=== PATIENT | male | born 1980 | race Hispanic/Latino ===

== ENCOUNTER 2021-01-05 23:42 | Inpatient (IN) | payer OTHER ==
[~2021-01-05] VITALS: Ht 170.2 cm; Wt 111.4 kg
[2021-01-06] VITALS (7 sets, daily range): BP systolic 118–140; BP diastolic 56–83
[2021-01-06] MEDS: SODIUM CHLORIDE 0.9% 1000ML 1,000 ML IV SCH ×3 (01:00→05:15)
[2021-01-06 01:53] LABS: BASOPHILS % (AUTO) 0.9 % (0.0-5.0); EOSINOPHILS % (AUTO) 3.6 % (0.0-8.0); HEMATOCRIT 36.4 % (42-54); LYMPHOCYTES % (AUTO) 37.9 % (21.0-51.0); MEAN CORPUSCULAR HGB CONC 35.2 g/dL (32.0-36.0); MEAN CORPUSCULAR VOLUME 85.2 fL (79-99); MONOCYTES % (AUTO) 9.7 % (3.0-13.0); NEUTROPHILS % (AUTO) 47.4 % (40.0-77.0); PLATELET COUNT (AUTO) 220 K/uL (130-400); RED BLOOD CELL COUNT(AUTO) 4.27 MIL/uL (4.50-6.20); RED CELL DISTRIBUTION WIDTH 12.6 % (11.0-15.5); WHITE BLOOD COUNT (AUTO) 5.5 K/uL (4.8-10.8)
[2021-01-06 01:57] LABS: APPEARANCE,URINE Clear (CLEAR); BILIRUBIN,URINE Negative (NEGATIVE); COLOR,URINE Yellow (YELLOW); GLUCOSE, URINE (UA) Negative (NEGATIVE); KETONES,URINE Negative (NEGATIVE); LEUKOCYTE ESTERASE ,URINE Negative (NEGATIVE); NITRATE,URINE Negative (NEGATIVE); OCCULT BLOOD,URINE Negative (NEGATIVE); PROTEIN,URINE Negative (NEGATIVE)
[2021-01-06 02:08] LABS: INR 1.21 (0.85-1.15)
[2021-01-06 02:18] LABS: CREATININE 1.3 mg/dL (0.5-1.5); POTASSIUM 3.8 mmol/L (3.5-5.1)
[2021-01-06 02:22] LABS: ALBUMIN 3.8 g/dL (3.5-5.0); BILIRUBIN,TOTAL 0.4 mg/dL (0.2-1.0); TOTAL PROTEIN, SERUM 7.9 g/dL (6.0-8.3)
[2021-01-06] MEDS ORDERED: AZITHROMYCIN 500MG+NS 250ML 250 ML IV SCH (04:45)
[2021-01-06] MEDS ORDERED: CEFTRIAXONE SODIUM 1 GM IVP SCH (04:45)
[2021-01-06] MEDS ORDERED: GUAIFENESIN-DM 200/20 MG 10 ML PO PRN (05:15)
[2021-01-06] MEDS ORDERED: ONDANSETRON HCL 4 MG/2 ML VIAL IV PRN (05:15)
[2021-01-06] MEDS: CEFTRIAXONE SODIUM 1 GM IVP SCH ×2 (05:15→17:45)
[2021-01-06] MEDS: AZITHROMYCIN 500MG+NS 250ML 250 ML IV SCH (05:15)
[2021-01-06] MEDS ORDERED: ACETAMINOPHEN 325 MG TAB PO PRN ×2 (05:15)
[2021-01-06 07:00] LABS: HEMATOCRIT 36.6 % (42-54); MEAN CORPUSCULAR HEMOGLOBIN 29.9 pg (27.0-33.0); MEAN CORPUSCULAR HGB CONC 34.4 g/dL (32.0-36.0); MEAN CORPUSCULAR VOLUME 86.9 fL (79-99); RED BLOOD CELL COUNT(AUTO) 4.21 MIL/uL (4.50-6.20); RED CELL DISTRIBUTION WIDTH 12.8 % (11.0-15.5); WHITE BLOOD COUNT (AUTO) 6.2 K/uL (4.8-10.8)
[2021-01-06 07:11] LABS: ALBUMIN 3.7 g/dL (3.5-5.0); BILIRUBIN,DIRECT 0.1 mg/dL (0.0-0.3); BILIRUBIN,TOTAL 0.3 mg/dL (0.2-1.0); CREATININE 1.1 mg/dL (0.5-1.5); POTASSIUM 4.4 mmol/L (3.5-5.1); TOTAL PROTEIN, SERUM 7.6 g/dL (6.0-8.3)
[2021-01-06] MEDS ORDERED: PANTOPRAZOLE 40 MG/VIAL IVP SCH (09:00)
[2021-01-06] MEDS ORDERED: IPRATROPIUM/ALBUTEROL SULFATE 3 ML SOLUTION IH PRN (09:30)
[2021-01-06] MEDS: MONTELUKAST SODIUM 10 MG TAB PO SCH (10:00)
[2021-01-06] MEDS: FENOFIBRATE NANOCRYSTALLIZED 145 MG TAB PO SCH (10:00)
[2021-01-06 14:18] LABS: EOSINOPHILS % (AUTO) 2.8 % (0.0-8.0); HEMATOCRIT 38.2 % (42-54); LYMPHOCYTES % (AUTO) 32.2 % (21.0-51.0); MEAN CORPUSCULAR HEMOGLOBIN 30.1 pg (27.0-33.0); MEAN CORPUSCULAR HGB CONC 34.6 g/dL (32.0-36.0); MONOCYTES % (AUTO) 10.5 % (3.0-13.0); NEUTROPHILS % (AUTO) 53.3 % (40.0-77.0); PLATELET COUNT (AUTO) 204 K/uL (130-400); RED BLOOD CELL COUNT(AUTO) 4.39 MIL/uL (4.50-6.20); RED CELL DISTRIBUTION WIDTH 12.5 % (11.0-15.5); WHITE BLOOD COUNT (AUTO) 6.1 K/uL (4.8-10.8)
[2021-01-06] MEDS: FISH OIL 1000 MG/CAP PO SCH (21:06)
[2021-01-07] MEDS ORDERED: SODIUM CHLORIDE 0.9% 1000ML 1,000 ML IV ONE (02:39)
[2021-01-07] MEDS: SODIUM CHLORIDE 0.9% 1000ML 1,000 ML IV SCH (02:39)
[2021-01-07 06:16] VITALS: BP 117/67
[2021-01-07] MEDS: AZITHROMYCIN 500MG+NS 250ML 250 ML IV SCH (06:20)
[2021-01-07] MEDS: CEFTRIAXONE SODIUM 1 GM IVP SCH ×2 (06:20→17:34)
[2021-01-07 07:23] LABS: HEMATOCRIT 39.6 % (42-54); MEAN CORPUSCULAR HEMOGLOBIN 29.7 pg (27.0-33.0); MEAN CORPUSCULAR HGB CONC 33.8 g/dL (32.0-36.0); MEAN CORPUSCULAR VOLUME 87.8 fL (79-99); RED BLOOD CELL COUNT(AUTO) 4.51 MIL/uL (4.50-6.20); RED CELL DISTRIBUTION WIDTH 12.7 % (11.0-15.5); WHITE BLOOD COUNT (AUTO) 5.8 K/uL (4.8-10.8)
[2021-01-07 07:33] LABS: CRP QUANTITATIVE 6.6 mg/L (0.00-9.0); MAGNESIUM 1.6 mg/dL (1.80-2.40)
[2021-01-07 07:46] VITALS: BP 130/82
[2021-01-07 07:56] LABS: ALBUMIN 3.7 g/dL (3.5-5.0); BILIRUBIN,TOTAL 0.4 mg/dL (0.2-1.0); POTASSIUM 4.5 mmol/L (3.5-5.1); TOTAL PROTEIN, SERUM 7.7 g/dL (6.0-8.3)
[2021-01-07] MEDS: MONTELUKAST SODIUM 10 MG TAB PO SCH (08:51)
[2021-01-07] MEDS: FISH OIL 1000 MG/CAP PO SCH ×2 (08:51→20:39)
[2021-01-07] MEDS: FENOFIBRATE NANOCRYSTALLIZED 145 MG TAB PO SCH (08:52)
[2021-01-07 11:36] VITALS: BP 131/78
[2021-01-07] MEDS ORDERED: MAGNESIUM 2GM PREMIX 50ML 50 ML IV PRN (12:45)
[2021-01-07 16:05] VITALS: BP 149/89
[2021-01-07] MEDS ORDERED: LOSARTAN 25 MG TABLET PO ONE (16:30)
[2021-01-07 16:55] VITALS: BP 152/96
[2021-01-07] MEDS ORDERED: LOSA25TA41 PO (18:04)
[2021-01-07] MEDS ORDERED: MAGN200T4 PO (18:04)
[2021-01-07] MEDS ORDERED: MONT10TA32 PO (18:04)
[2021-01-07] MEDS ORDERED: FLUT1AER IH (18:04)
[2021-01-07] MEDS ORDERED: FENO145T26 PO (18:04)
[2021-01-07] MEDS ORDERED: OMEG-148 PO (18:04)
[2021-01-07] MEDS ORDERED: APIX5TAB PO (18:04)
[2021-01-07] MEDS ORDERED: AEC81 PO (18:04)
[2021-01-07 20:18] VITALS: BP 162/90
[2021-01-08] VITALS (15 sets, daily range): BP systolic 118–150; BP diastolic 57–82
[2021-01-08 05:04] LABS: HEMATOCRIT 39.7 % (42-54); MEAN CORPUSCULAR HEMOGLOBIN 28.9 pg (27.0-33.0); RED BLOOD CELL COUNT(AUTO) 4.67 MIL/uL (4.50-6.20); RED CELL DISTRIBUTION WIDTH 12.5 % (11.0-15.5); WHITE BLOOD COUNT (AUTO) 6.5 K/uL (4.8-10.8)
[2021-01-08 05:12] LABS: CREATININE 1.1 mg/dL (0.5-1.5); POTASSIUM 4.2 mmol/L (3.5-5.1)
[2021-01-08 05:15] LABS: INR 1.23 (0.85-1.15); PROTHROMBIN TIME 13.2 SEC (9.6-11.6)
[2021-01-08] MEDS: AZITHROMYCIN 500MG+NS 250ML 250 ML IV SCH (06:02)
[2021-01-08] MEDS: CEFTRIAXONE SODIUM 1 GM IVP SCH ×2 (06:03→17:53)
[2021-01-08] MEDS: MONTELUKAST SODIUM 10 MG TAB PO SCH (15:18)
[2021-01-08] MEDS: FENOFIBRATE NANOCRYSTALLIZED 145 MG TAB PO SCH (15:18)
[2021-01-08] MEDS: PANTOPRAZOLE SODIUM 40 MG TABLET.DR PO SCH (15:19)
[2021-01-08] MEDS: LOSARTAN 25 MG TABLET PO SCH (15:19)
[2021-01-08] MEDS: FISH OIL 1000 MG/CAP PO SCH ×2 (15:19→22:21)
[2021-01-08] MEDS ORDERED: LIDOCAINE HCL 400MG/20ML VIAL ONE (16:13)
[2021-01-08] MEDS ORDERED: IODIXANOL 320 MG/ML 100 ML VIAL ONE (16:25)
[2021-01-09 03:40] VITALS: BP 127/68
[2021-01-09 04:22] LABS: HEMATOCRIT 39.2 % (42-54); MEAN CORPUSCULAR HEMOGLOBIN 29.6 pg (27.0-33.0); MEAN CORPUSCULAR HGB CONC 34.4 g/dL (32.0-36.0); RED BLOOD CELL COUNT(AUTO) 4.56 MIL/uL (4.50-6.20); RED CELL DISTRIBUTION WIDTH 12.4 % (11.0-15.5); WHITE BLOOD COUNT (AUTO) 5.9 K/uL (4.8-10.8)
[2021-01-09 04:45] LABS: CREATININE 1.3 mg/dL (0.5-1.5); POTASSIUM 3.8 mmol/L (3.5-5.1)
[2021-01-09] MEDS ORDERED: SODIUM CHLORIDE 0.9% 250 ML ONE (04:58)
[2021-01-09] MEDS: CEFTRIAXONE SODIUM 1 GM IVP SCH ×2 (05:06→17:46)
[2021-01-09] MEDS: AZITHROMYCIN 500MG+NS 250ML 250 ML IV SCH (05:06)
[2021-01-09 07:00] VITALS: BP 135/78
[2021-01-09] MEDS: MONTELUKAST SODIUM 10 MG TAB PO SCH (10:02)
[2021-01-09] MEDS: LOSARTAN 25 MG TABLET PO SCH (10:02)
[2021-01-09] MEDS: PANTOPRAZOLE SODIUM 40 MG TABLET.DR PO SCH (10:02)
[2021-01-09] MEDS: FENOFIBRATE NANOCRYSTALLIZED 145 MG TAB PO SCH (10:02)
[2021-01-09] MEDS: FISH OIL 1000 MG/CAP PO SCH ×2 (10:02→20:34)
[2021-01-09 11:00] VITALS: BP 139/78
[2021-01-09 16:00] VITALS: BP 133/85
[2021-01-09] MEDS: PREDNISONE 20 MG TABLET PO SCH (17:46)
[2021-01-09 19:51] VITALS: BP 148/89
[2021-01-09 23:40] VITALS: BP 117/75
[2021-01-10 03:48] VITALS: BP 127/72
[2021-01-10 04:27] LABS: HEMATOCRIT 39.7 % (42-54); MEAN CORPUSCULAR HGB CONC 34.5 g/dL (32.0-36.0); MEAN CORPUSCULAR VOLUME 83.9 fL (79-99); RED BLOOD CELL COUNT(AUTO) 4.73 MIL/uL (4.50-6.20); WHITE BLOOD COUNT (AUTO) 6.7 K/uL (4.8-10.8)
[2021-01-10 04:39] LABS: CREATININE 1.1 mg/dL (0.5-1.5); POTASSIUM 4.9 mmol/L (3.5-5.1)
[2021-01-10] MEDS: AZITHROMYCIN 500MG+NS 250ML 250 ML IV SCH (04:54)
[2021-01-10] MEDS: CEFTRIAXONE SODIUM 1 GM IVP SCH ×2 (04:55→18:14)
[2021-01-10 07:00] VITALS: BP 135/80
[2021-01-10] MEDS: FISH OIL 1000 MG/CAP PO SCH ×2 (10:20→20:38)
[2021-01-10] MEDS: LOSARTAN 25 MG TABLET PO SCH (10:20)
[2021-01-10] MEDS: PANTOPRAZOLE SODIUM 40 MG TABLET.DR PO SCH (10:20)
[2021-01-10] MEDS: FENOFIBRATE NANOCRYSTALLIZED 145 MG TAB PO SCH (10:20)
[2021-01-10] MEDS: MONTELUKAST SODIUM 10 MG TAB PO SCH (10:20)
[2021-01-10] MEDS: PREDNISONE 20 MG TABLET PO SCH (10:20)
[2021-01-10 11:00] VITALS: BP 141/79
[2021-01-10] MEDS: FLUTICASONE/VILANTEROL 1 EACH AER.POW.BA IH SCH (11:50)
[2021-01-10] MEDS: APIXABAN 2.5 MG TABLET PO SCH ×2 (11:50→20:38)
[2021-01-10 15:00] VITALS: BP 144/82
[2021-01-10] MEDS ORDERED: CHOL2400 MC (16:35)
[2021-01-10] MEDS ORDERED: MAGN400C PO (16:35)
[2021-01-10] MEDS ORDERED: FISH12002 PO (16:35)
[2021-01-10] MEDS ORDERED: FOLI0.8C PO (16:35)
[2021-01-10] MEDS ORDERED: VITA1TAB22 PO (16:35)
[2021-01-10] MEDS ORDERED: ASCO100031 PO (16:35)
[2021-01-10 19:40] VITALS: BP 140/72
[2021-01-10 23:32] VITALS: BP 143/67
[2021-01-11 03:47] VITALS: BP 132/75
[2021-01-11] MEDS: CEFTRIAXONE SODIUM 1 GM IVP SCH (05:25)
[2021-01-11] MEDS: AZITHROMYCIN 500MG+NS 250ML 250 ML IV SCH (05:25)
[2021-01-11 05:34] LABS: BASOPHILS % (AUTO) 0.3 % (0.0-5.0); EOSINOPHILS % (AUTO) 1.4 % (0.0-8.0); HEMATOCRIT 38.1 % (42-54); LYMPHOCYTES % (AUTO) 31.5 % (21.0-51.0); MEAN CORPUSCULAR HEMOGLOBIN 29.7 pg (27.0-33.0); MEAN CORPUSCULAR HGB CONC 35.2 g/dL (32.0-36.0); MEAN CORPUSCULAR VOLUME 84.5 fL (79-99); MONOCYTES % (AUTO) 8.9 % (3.0-13.0); NEUTROPHILS % (AUTO) 57.5 % (40.0-77.0); PLATELET COUNT (AUTO) 140 K/uL (130-400); RED BLOOD CELL COUNT(AUTO) 4.51 MIL/uL (4.50-6.20); RED CELL DISTRIBUTION WIDTH 12.1 % (11.0-15.5)
[2021-01-11 05:46] LABS: POTASSIUM 3.7 mmol/L (3.5-5.1)
[2021-01-11 07:00] VITALS: BP 140/84
[2021-01-11] MEDS: FENOFIBRATE NANOCRYSTALLIZED 145 MG TAB PO SCH (08:59)
[2021-01-11] MEDS: MONTELUKAST SODIUM 10 MG TAB PO SCH (08:59)
[2021-01-11] MEDS: LOSARTAN 25 MG TABLET PO SCH (08:59)
[2021-01-11] MEDS: PREDNISONE 20 MG TABLET PO SCH (09:00)
[2021-01-11] MEDS: APIXABAN 2.5 MG TABLET PO SCH (09:00)
[2021-01-11] MEDS: FISH OIL 1000 MG/CAP PO SCH (09:00)
[2021-01-11] MEDS: PANTOPRAZOLE SODIUM 40 MG TABLET.DR PO SCH (09:00)
[2021-01-11] MEDS: FLUTICASONE/VILANTEROL 1 EACH AER.POW.BA IH SCH (09:02)
[2021-01-11 11:00] VITALS: BP 139/77
[2021-01-11] MEDS ORDERED: LEVO500T89 PO (14:29)
[2021-01-11] MEDS ORDERED: APIX2.5T PO (14:29)
[2021-01-11] MEDS ORDERED: PRED20TA3 PO (14:29)
[2021-01-11] MEDS ORDERED: PANT40TA55 PO (14:29)
[2021-01-11 16:00] VITALS: BP 153/81
[2021-01-12] MEDS ORDERED: MAGNESIUM OXIDE 400 MG TABLET PO SCH (09:00)
== END 2021-01-11 14:00 | disposition home or self-care (01) | DRG 299 ==
LOC: EDH 23:42 → EDHIP 01-06 05:11 → 4DH 01-07 15:18
PROVIDERS: ADMIT Internal Medicine; ATTEND Internal Medicine
PROC: 06H03DZ Insertion of Intraluminal Device into Inferior Vena Cava, Percutaneous Approach (ICD-10-PCS; principal; 2021-01-08)
DX: I82.503 Chronic embolism and thrombosis of unspecified deep veins of lower extremity, bilateral (principal); J18.9 Pneumonia, unspecified organism; R04.2 Hemoptysis; D68.61 Antiphospholipid syndrome; D64.9 Anemia, unspecified; E66.01 Morbid (severe) obesity due to excess calories; I10 Essential (primary) hypertension; E78.5 Hyperlipidemia, unspecified; J45.909 Unspecified asthma, uncomplicated; G47.33 Obstructive sleep apnea (adult) (pediatric); M32.9 Systemic lupus erythematosus, unspecified; K80.20 Calculus of gallbladder without cholecystitis without obstruction; R16.0 Hepatomegaly, not elsewhere classified; E88.89 Other specified metabolic disorders; Z20.822 Contact with and (suspected) exposure to COVID-19; Z68.38 Body mass index [BMI] 38.0-38.9, adult; Z79.01 Long term (current) use of anticoagulants
CPT/HCPCS: 36415; 37191; 71275; 76705; 80048; 80053; 80076; 81003; 83735; 84145; 84484; 85025; 85027; 85378; 85610; 85651; 86038; 86140; 86160; 86215; 86738; 87040; 87426; 87449; 87635; 87637; 87804; 93005; 93306; 93356; 93970; C9113; G0378; J0456; J0696; J1644; J3475; J3490; J7030; J7050; Q9967

== ENCOUNTER 2021-09-07 14:02 | Emergency (ER) | payer OTHER ==
[~2021-09-07] VITALS: Ht 170.2 cm; Wt 117.9 kg
[~2021-09-07 14:02] MED LIST: APIX2.5T PO; ASCO100031 PO; CHOL2400 MC; FENO145T26 PO; FISH12002 PO; FLUT1AER IH; FOLI0.8C PO; LEVO500T90 PO; LOSA25TA41 PO; MAGN200T4 PO; MAGN400C PO; MONT-39 PO; OMEG-148 PO; PANT40TA55 PO; PRED20TA3 PO; VITA1TAB22 PO
[2021-09-07] MEDS ORDERED: LIDOCAINE HCL 400MG/20ML VIAL ONE (16:29)
[2021-09-07] MEDS ORDERED: LIDOCAINE 1%-EPI 1:100,000 20 ML VIAL IJ SCH (16:30)
[2021-09-07] MEDS ORDERED: IBUPROFEN 800 MG TAB PO ONE (16:30)
[2021-09-07] MEDS ORDERED: TETANUS/DIPHTHERIA TOXOID [ADULT] 0.5 ML VIAL IM ONE ×2 (17:00→17:09)
[2021-09-07 17:19] VITALS: BP 123/79
== END 2021-09-07 17:21 | disposition home or self-care (01) ==
LOC: EDH 14:02
DX: S61.011A Laceration without foreign body of right thumb without damage to nail, initial encounter (principal); J45.909 Unspecified asthma, uncomplicated; I10 Essential (primary) hypertension; Z79.899 Other long term (current) drug therapy; X58.XXXA Exposure to other specified factors, initial encounter; Y93.89 Activity, other specified; Y92.89 Other specified places as the place of occurrence of the external cause; Y99.8 Other external cause status
CPT/HCPCS: 12002; 73130; 90471; 90714; J3490

== ENCOUNTER 2024-05-26 10:25 | Inpatient (IN) | payer BC, OTHER ==
[~2024-05-26] VITALS: Ht 167.6 cm; Wt 122.0 kg
[2024-05-26] VITALS (7 sets, daily range): BP systolic 114–139; BP diastolic 52–86; PULSE 95–121; RESP 16–18; TEMP 98.4–102.8; O2SAT 96–99
[~2024-05-26 10:25] MED LIST changes: +LEVO-70 PO; -LEVO500T90 PO; +VITA-427 PO; -VITA1TAB22 PO
[2024-05-26 10:44] LABS: BASOPHILS # (AUTO) 0.03 K/uL (0.00-0.20); BASOPHILS % (AUTO) 0.3 % (0.0-5.0); EOSINOPHILS # (AUTO) 0.13 K/uL (0.00-0.70); EOSINOPHILS % (AUTO) 1.4 % (0.0-8.0); HEMATOCRIT 38.5 % (42-54); IMMATURE GRANULOCYTE ABSOLUTE 0.04 K/uL (0-1); LYMPHOCYTES # (AUTO) 1.7 K/uL (1.0-4.8); LYMPHOCYTES % (AUTO) 18.7 % (21.0-51.0); MEAN CORPUSCULAR HEMOGLOBIN 30.3 pg (27.0-33.0); MEAN CORPUSCULAR HGB CONC 35.8 g/dL (32.0-36.0); MEAN CORPUSCULAR VOLUME 84.4 fL (79-99); MONOCYTES # (AUTO) 0.6 K/uL (0.1-1.0); MONOCYTES % (AUTO) 6.2 % (3.0-13.0); NEUTROPHILS # (AUTO) 6.7 K/uL (1.8-7.7); PLATELET COUNT (AUTO) 208 K/uL (130-400); RED BLOOD CELL COUNT(AUTO) 4.56 MIL/uL (4.50-6.20); WHITE BLOOD COUNT (AUTO) 9.1 K/uL (4.8-10.8)
[2024-05-26 10:57] LABS: CREATININE 0.9 mg/dL (0.5-1.3); POTASSIUM 3.9 mmol/L (3.5-5.1)
[2024-05-26 11:07] LABS: B-TYPE NATRIURETIC PEPTIDE 11 pg/mL (0-100)
[2024-05-26] MEDS ORDERED: IOHEXOL 350 MG/ML 100ML INFUS..BTL IV ONE (12:12)
[2024-05-26] MEDS: ASPIRIN 81MG CHEW TAB PO ONE (12:39)
[2024-05-26] MEDS ORDERED: NITROGLYCERIN 0.4 MG SL TAB SL PRN (14:00)
[2024-05-26] MEDS ORDERED: ondanSETRON 4MG INJ IVP PRN (14:00)
[2024-05-26 14:25] LABS: INR 1.24 (0.85-1.15); PROTHROMBIN TIME 13.2 SEC (9.6-11.6)
[2024-05-26 14:26] LABS: PARTIAL THROMBOPLASTIN TIME 73.2 SEC (26.3-35.5)
[2024-05-26 14:27] LABS: ALBUMIN 3.8 g/dL (3.5-5.0); BILIRUBIN,DIRECT 0.1 mg/dL (0.0-0.3); BILIRUBIN,TOTAL 0.6 mg/dL (0.2-1.0); TOTAL PROTEIN, SERUM 8.1 g/dL (6.0-8.3)
[2024-05-26] MEDS ORDERED: HEParin 25,000 UNITS/250ML D5W 250 ML IV SCH (14:30)
[2024-05-26] MEDS: PANTOPrazole 40 MG/VIAL IVP SCH (15:01)
[2024-05-26] MEDS: ENOXAPARIN SODIUM 120 MG/0.8ML SQ SCH (15:02)
[2024-05-26 15:34] LABS: COVID19 (SARS ANTIGEN RAPID) PRESUMPTIVE NEGATIVE (NEGATIVE); INFLUENZA TYPE A Negative For Type A (NEGATIVE); INFLUENZA TYPE B Negative For Type B (NEGATIVE)
[2024-05-26 16:12] LABS: HEMOGLOBIN A1C 6.5 % (4.0-6.0)
[2024-05-26] MEDS ORDERED: TOPI-97 PO (19:02)
[2024-05-26] MEDS: topIRAMate 25 MG TABLET PO SCH (20:47)
[2024-05-26] MEDS: acetaMINOPHEN 500 MG TABLET PO PRN (20:53)
[2024-05-27] VITALS (10 sets, daily range): BP systolic 120–141; BP diastolic 64–76; PULSE 88–110; RESP 16–19; TEMP 98.1–99.7; O2SAT 96–99
[2024-05-27 08:43] LABS: BASOPHILS # (AUTO) 0.05 K/uL (0.00-0.20); BASOPHILS % (AUTO) 0.5 % (0.0-5.0); EOSINOPHILS # (AUTO) 0.03 K/uL (0.00-0.70); EOSINOPHILS % (AUTO) 0.3 % (0.0-8.0); HEMATOCRIT 39.6 % (42-54); IMMATURE GRANULOCYTE ABSOLUTE 0.04 K/uL (0-1); LYMPHOCYTES # (AUTO) 1.3 K/uL (1.0-4.8); LYMPHOCYTES % (AUTO) 13.1 % (21.0-51.0); MEAN CORPUSCULAR HEMOGLOBIN 30.7 pg (27.0-33.0); MEAN CORPUSCULAR HGB CONC 34.8 g/dL (32.0-36.0); MONOCYTES # (AUTO) 0.7 K/uL (0.1-1.0); MONOCYTES % (AUTO) 6.7 % (3.0-13.0); NEUTROPHILS # (AUTO) 7.8 K/uL (1.8-7.7); PLATELET COUNT (AUTO) 194 K/uL (130-400); RED CELL DISTRIBUTION WIDTH 12.3 % (11.0-15.5); WHITE BLOOD COUNT (AUTO) 9.9 K/uL (4.8-10.8)
[2024-05-27 08:59] LABS: ALBUMIN 3.6 g/dL (3.5-5.0); BILIRUBIN,TOTAL 1.2 mg/dL (0.2-1.0); CREATININE 1.2 mg/dL (0.5-1.3); POTASSIUM 3.6 mmol/L (3.5-5.1); TOTAL PROTEIN, SERUM 7.9 g/dL (6.0-8.3)
[2024-05-27] MEDS ORDERED: monteLUKAST sodIUM 10 MG TAB PO SCH (09:00)
[2024-05-27] MEDS: LoSARTan 50 MG TABLET PO SCH (09:13)
[2024-05-27] MEDS: FOLic ACID 1 MG TABLET PO SCH (09:13)
[2024-05-27] MEDS: CYANOCOBALAMIN (VITAMIN B-12) 1,000 MCG TABLET PO SCH (09:13)
[2024-05-27 09:41] LABS: APPEARANCE,URINE CLEAR (CLEAR); BILIRUBIN,URINE NEGATIVE (NEGATIVE); COLOR,URINE YELLOW (YELLOW); GLUCOSE, URINE (UA) NEGATIVE (NEGATIVE); KETONES,URINE NEGATIVE (NEGATIVE); LEUKOCYTE ESTERASE ,URINE NEGATIVE Leu/uL (NEGATIVE); NITRATE,URINE NEGATIVE (NEGATIVE); OCCULT BLOOD,URINE NEGATIVE (NEGATIVE); PROTEIN,URINE 10 mg/dL (NEGATIVE); UROBILINOGEN,URINE 0.2 mg/dL (0.2-1.0)
[2024-05-27 09:43] LABS: ADD UA MICROSCOPIC YES
[2024-05-27 09:44] LABS: MUCUS,URINE RARE LPF (None Seen); RBC,URINE 0-1 /HPF (0-1)
[2024-05-27 09:49] LABS: ERYTHROCYTE SEDIMENTATION RATE 40 MM/HR (0-15)
[2024-05-27] MEDS: MAGNESIUM OXIDE 400 MG TABLET PO SCH (11:29)
[2024-05-27] MEDS: WARFARIN SODIUM 5 MG TAB PO ONE (11:29)
[2024-05-27] MEDS: ASCORBIC ACID 500 MG TAB PO SCH (11:29)
[2024-05-27] MEDS: FISH OIL 1000 MG/CAP PO SCH (11:30)
[2024-05-27] MEDS: WARFARIN SODIUM 2 MG TAB PO ONE (11:30)
[2024-05-27] MEDS ORDERED: PoTASSium chloRIDE 20MEQ/100ML 100 ML IV PRN (12:30)
[2024-05-27] MEDS ORDERED: PoTASSium chl 10% ELIXIR 20MEQ 20 MEQ/15 ML UDCUP PO PRN (12:30)
[2024-05-27] MEDS: MAGNESIUM 2GM PREMIX 50ML 50 ML IV PRN (12:40)
[2024-05-27] MEDS: PoTASSium chloRIDE 20MEQ ER 20 MEQ ERTAB PO PRN (12:40)
[2024-05-27] MEDS: IpraTROPium/alBUTERol SULFATE 3 ML SOLUTION IH PRN (13:00)
[2024-05-27] MEDS: ENOXAPARIN SODIUM 120 MG/0.8ML SQ SCH (16:10)
[2024-05-27] MEDS: monteLUKAST sodIUM 10 MG TAB PO SCH (20:21)
[2024-05-28 03:49] VITALS: BP 137/74; PULSE 82; RESP 18; TEMP 98.3
[2024-05-28 03:56] LABS: HEMATOCRIT 36.8 % (42-54); MEAN CORPUSCULAR HEMOGLOBIN 30.9 pg (27.0-33.0); MEAN CORPUSCULAR HGB CONC 35.1 g/dL (32.0-36.0); RED BLOOD CELL COUNT(AUTO) 4.18 MIL/uL (4.50-6.20); RED CELL DISTRIBUTION WIDTH 12.3 % (11.0-15.5); WHITE BLOOD COUNT (AUTO) 9.8 K/uL (4.8-10.8)
[2024-05-28 04:06] LABS: INR 1.22 (0.85-1.15)
[2024-05-28 04:07] LABS: MAGNESIUM 2.2 mg/dL (1.80-2.40); POTASSIUM 4.2 mmol/L (3.5-5.1)
[2024-05-28] MEDS: guaiFENesin-DM 200/20MG 10ML PO PRN (04:12)
[2024-05-28 07:00] VITALS: BP 137/83; PULSE 84; RESP 20; TEMP 98.8
[2024-05-28 07:27] VITALS: PULSE 85; RESP 16; O2SAT 97
[2024-05-28 08:00] VITALS: O2SAT 97
[2024-05-28 09:11] LABS: INR 1.28 (0.85-1.15); PROTHROMBIN TIME 13.6 SEC (9.6-11.6)
[2024-05-28] MEDS: VITAMIN B COMPLEX 1 CAPSULE PO SCH (09:38)
[2024-05-28 11:00] VITALS: BP 140/78; PULSE 78; RESP 20; TEMP 98.1
[2024-05-28] MEDS ORDERED: WARF7.5T49 PO (13:50)
[2024-05-28] MEDS ORDERED: ENOX120D SQ (13:50)
[2024-05-28] MEDS ORDERED: WARFARIN SODIUM 2 MG TAB PO SCH (16:00)
[2024-05-28] MEDS ORDERED: WARFARIN SODIUM 5 MG TAB PO SCH (16:00)
[2024-05-28] MEDS ORDERED: WARFARIN SODIUM 7.5 MG TAB PO SCH (16:00)
== END 2024-05-28 15:50 | disposition home or self-care (01) | DRG 176 ==
LOC: EDH 10:25 → EDHIP 13:28 → 2DH 16:39
PROVIDERS: ADMIT Internal Medicine; ATTEND Internal Medicine
DX: I26.99 Other pulmonary embolism without acute cor pulmonale (principal); Z68.41 Body mass index [BMI] 40.0-44.9, adult; D68.62 Lupus anticoagulant syndrome; I10 Essential (primary) hypertension; E66.01 Morbid (severe) obesity due to excess calories; J45.909 Unspecified asthma, uncomplicated; G47.33 Obstructive sleep apnea (adult) (pediatric); E11.9 Type 2 diabetes mellitus without complications; G43.909 Migraine, unspecified, not intractable, without status migrainosus; E78.1 Pure hyperglyceridemia; Z95.828 Presence of other vascular implants and grafts; Z82.49 Family history of ischemic heart disease and other diseases of the circulatory system; Z83.3 Family history of diabetes mellitus; Z79.01 Long term (current) use of anticoagulants; Z86.711 Personal history of pulmonary embolism; Z86.718 Personal history of other venous thrombosis and embolism; Z79.899 Other long term (current) drug therapy
CPT/HCPCS: 36415; 71045; 71270; 80048; 80053; 80076; 80305; 81001; 82550; 82948; 83036; 83735; 83880; 84145; 84484; 85025; 85027; 85610; 85651; 85730; 85732; 86038; 86140; 86147; 87040; 87426; 87804; 93005; 93306; 93356; 93970; 94640; 94664; 99291; G0378; J1650; J2470; J3475; Q9967